=== PATIENT | female | born 1980 | race Caucasian/White ===

== ENCOUNTER 2021-04-09 20:38 | Emergency (ER) | payer BC, SELFPAY ==
--- NOTE | ~2021-04-09 | XR_ITS ---
EXAMINATION: XR CHEST CLINICAL INFORMATION: COVID+, chest wall pain COMPARISON: None TECHNIQUE: Frontal view of the chest was obtained. FINDINGS: The cardiomediastinal silhouette is within normal limits. Pulmonary vascularity is within normal limits. Mild streaky opacities in the left lung base most likely representing atelectasis. The lungs otherwise appear clear. The pleural spaces appear clear. There are no acute osseous findings. Surgical clips project at the neck base. XR/XR chest 1V IMPRESSION: Mild streaky left basilar opacities most likely representing atelectasis. Otherwise the lungs are relatively clear.
[2021-04-09 20:52] VITALS: BP 144/89; PULSE 74; RESP 16; TEMP 36.6; O2SAT 99; BMI 37.8
[2021-04-09 23:27] VITALS: BP 123/86; PULSE 63; RESP 16; TEMP 36.8; O2SAT 98
--- NOTE | 2021-04-10 00:24 | ED.URI ---
HPI - URI/Sore Throat General Chief Complaint: Upper Respiratory Symptoms Stated Complaint: SOB/+Covid Time Seen by Provider: 04/10/21 00:24 Source: patient Mode of arrival: ambulatory Limitations: no limitations History of Present Illness HPI Narrative: Patient already been vaccinated against COVID-19 has notices a booster dose here been sick for last 5 days with cough shortness of breath loss of Taste sensation already taking prednisone given by her PCP for last 4 days saturating 98% at room air Related Data Previous Rx's Medication Instructions Recorded codeine 10 mg-guaifenesin 100 mg/5 10 ml PO Q4-6H PRN #237 ml 04/10/21 mL oral liquid Allergies Allergy/AdvReac Type Severity Reaction Status Date / Time No Known Allergies Allergy Verified 04/09/21 20:52 Review of Systems Review of Systems: Yes all other systems are reviewed and are negative COUNT INCLUDES THE [facility] Social History Social History Advance Directives: No Advance Directives Information Provided: No Patient : No Physical Exam Vital Signs: Vital Signs: Last Vital Signs Temp 98.2 F 04/09/21 23:27 Pulse 63 04/09/21 23:27 Resp 16 04/09/21 23:27 BP 123/86 04/09/21 23:27 Pulse Ox 98 04/09/21 23:27 BMI result Body Mass Index 37.8 Appearance: Alert. Oriented X3. No acute distress. ENT: Pharynx normal. Oral Mucosa moist Neck: Normal inspection. Neck supple. CVS: Normal heart rate and rhythm. Pulses normal. Respiratory: No respiratory distress. Equal air entry bilateral, no wheezing/rales/rhonchi Abdomen: Soft and nontender. Skin: Skin warm and dry. Normal skin color. Extremities: No lower extremity edema. No calf tenderness Neuro: Oriented X 3. MDM - URI/Sore Throat MDM Narrative Medical decision making narrative: Patient with post COVID 19 vaccination with COVID symptoms COVID test positive chest x-ray negative discharge patient home on cough syrup patient already taking prednisone patient is saturating 98% room air Discharge Plan Discharge Clinical Impression: COVID-19 Patient Disposition: Home, Self-Care Instructions: COVID-19 (Coronavirus Disease 2019) (ED) Additional Instructions: Social distancing and isolation as advised Report to PCP/ER if increased shortness of breath Cough syrup as advised Prescriptions: New codeine-guaifenesin 10-100 mg/5 mL liquid 10 ml PO Q4-6H PRN (Reason: cough) Qty: 237 RF: 0 Interventions: ED Discharge Assessment Last Done: 04/10/21 01:01 Discharge Date/Time: 04/10/21 01:02
[2021-04-10] MEDS: guaiFEN/Codeine SF 200/20/10ML 10 ML LIQUID PO (01:00)
== END 2021-04-10 01:02 | disposition home or self-care (01) ==
PROVIDERS: Emergency Provider Internal Medicine; PCP Nurse Practitioner Family
DX: U07.1 COVID-19 (principal); R43.9 Unspecified disturbances of smell and taste
CPT/HCPCS: 71045; 99283; 99284

== ENCOUNTER → 2021-08-25 13:37 | Outpatient (BNVA) | payer BC, SELFPAY | PROVIDERS: PCP Nurse Practitioner Family; Visit Provider Nurse Practitioner Family | DX: Z13.89 Encounter for screening for other disorder (principal) ==

== ENCOUNTER 2021-10-25 06:34 | Outpatient (REF) | payer BC, SELFPAY ==
--- NOTE | ~2021-10-25 | FL_ITS ---
EXAMINATION: XR FLUOROSCOPY WITH IMAGES CLINICAL INFORMATION: Sacrococcygeal disorder. COMPARISON: None. TECHNIQUE: Fluoroscopy performed by Dr. Dayday Barragan. Fluoroscopy time: 0.2 minutes DAP: 1.43 Gycm2 Images: 3 FINDINGS: Imaging demonstrates needle and contrast overlying the region of the right sacroiliac joint. FL/FL guidance in treatment room IMPRESSION: Fluoroscopy for pain management procedure.
== END 2021-10-25 06:35 | disposition home or self-care (01) ==
LOC: HO.RADIR 06:34
PROVIDERS: Visit Provider Anesthesiology
DX: M53.3 Sacrococcygeal disorders, not elsewhere classified (principal); M47.816 Spondylosis without myelopathy or radiculopathy, lumbar region; M79.18 Myalgia, other site; M54.16 Radiculopathy, lumbar region
CPT/HCPCS: 27096

== ENCOUNTER 2021-12-02 06:17 | Day surgery (SDC) | payer BC, SELFPAY ==
--- NOTE | 2021-12-01 12:09 | HO.ANESPROP2 ---
Documented by User: Anuradha Sherwood NP 12/01/21 12:09 HPI - Anesthesia Eval Consult details Narrative: 41yo F for Caudal Epidural Steroid Injection with catheter PMFSH Active Problems Active Problems: All Active Problems (Updated 08/25/21 @ 22:22 by ELISABETH Moe) Lumbar radiculopathy (Acute) Low back pain (Acute) Anxiety (Acute) Myofascial pain (Acute) Sacroiliac joint dysfunction (Acute) Lumbar spondylosis (Acute) COVID-19 (Acute) Past Medical History Medical History Anxiety Endometriosis Heavy periods Low back pain PCOS (polycystic ovarian syndrome) Thyroid disease Surgical History Surgical History H/O thyroidectomy History of carpal tunnel release History of laparoscopy History of tonsillectomy and adenoidectomy S/P lumbar microdiscectomy Social History Social History Patient Tobacco Use Status: Never used Tobacco Use of substances other than those prescribed or required for medical reasons: No Are you DNR?: No Advance Directives: No Advance Directives Information Provided: Yes Meds Allergies Allergy/AdvReac Type Severity Reaction Status Date / Time No Known Allergies Allergy Verified 10/28/21 14:28 Home Medications Medication Instructions Recorded Confirmed Last Taken Type alprazolam 0.5 mg tablet 0.5 mg PO 08/25/21 Unknown History levothyroxine 125 mcg tablet 125 mcg PO DAILY 08/25/21 12/02/21 History (Synthroid) norgestimate 0.18 mg/0.215 mg/0.25 1 tab PO DAILY 08/25/21 Unknown History mg-ethinyl estradiol 25 mcg tablet (Brs-Po-Uvexsr) zolpidem 5 mg tablet 5 mg PO insomnia 08/25/21 Unknown History norgestimate 0.25 mg-ethinyl 1 tab PO DAILY 10/28/21 Unknown History estradiol 35 mcg tablet zolpidem 10 mg tablet 10 mg PO BEDTIME PRN 10/28/21 Unknown History Exam Exam Date and Time: December 01, 2021 1209 Assessment and Plan Assessment Anesthesia Assessment: Chart Reviewed Documented by User: Timoeto Patel MD 12/02/21 07:39 PMFSH Past Medical History Medical History Anxiety Endometriosis Heavy periods Low back pain PCOS (polycystic ovarian syndrome) Thyroid disease Patient : No Family History Family history of problems with anesthesia: No Surgical History Surgical History H/O thyroidectomy History of carpal tunnel release History of laparoscopy History of tonsillectomy and adenoidectomy S/P lumbar microdiscectomy History of Problems with Anesthesia: No Social History Social History Patient Tobacco Use Status: Never used Tobacco Use of substances other than those prescribed or required for medical reasons: No Are you DNR?: No Advance Directives: No Advance Directives Information Provided: Yes Meds Allergies Allergy/AdvReac Type Severity Reaction Status Date / Time No Known Allergies Allergy Verified 10/28/21 14:28 Home Medications Medication Instructions Recorded Confirmed Last Taken Type alprazolam 0.5 mg tablet 0.5 mg PO 08/25/21 Unknown History levothyroxine 125 mcg tablet 125 mcg PO DAILY 08/25/21 12/02/21 History (Synthroid) norgestimate 0.18 mg/0.215 mg/0.25 1 tab PO DAILY 08/25/21 Unknown History mg-ethinyl estradiol 25 mcg tablet (Xwg-Th-Ymkfty) zolpidem 5 mg tablet 5 mg PO insomnia 08/25/21 Unknown History norgestimate 0.25 mg-ethinyl 1 tab PO DAILY 10/28/21 Unknown History estradiol 35 mcg tablet zolpidem 10 mg tablet 10 mg PO BEDTIME PRN 10/28/21 Unknown History Exam Airway Mallampati Class: II TM Dist: >3cm Neck ROM: Full Loose/Missing/Broken Teeth: No (Rrr) Lungs: clear Assessment and Plan Final Anesthetic Review Family History of Problems with Anesthesia: No History of Problems with Anesthesia: No NPO: Yes ASA Class: II Final Preanesthetic Review: No Changes in Pt Med Stat, Meds/Allgs Chart Reviewed, Consent Obtained/Reviewed and Anes Risks/Benef Reviewed Patient Risk: Intermediate Anesthetic Plan Anesthetic Plan: MAC: Disposition: Standard PACU
--- NOTE | ~2021-12-02 | FL_ITS ---
EXAMINATION: XR FLUOROSCOPY WITH IMAGES CLINICAL INFORMATION: Caudal epidural steroid injection COMPARISON: None. TECHNIQUE: Fluoroscopy performed by Dr. Dayday Barragan. Fluoroscopy time: 0.2 minutes. Cumulative Dose: 13.1 mGy. DAP: 3.57 Gy-cm2. Images: 2. FINDINGS: Spinal needle seen at the lower sacral hiatus. There is some scattered contrast in the epidural space. No visible vascular communication. FL/FL guidance in OR IMPRESSION: Fluoroscopy for pain management procedure.
[2021-12-02 06:36] LABS: UPreg QC Valid YES; Urine Pregnancy NEGATIVE (NEGATIVE)
[2021-12-02 06:38] VITALS: BP 140/87; PULSE 73; RESP 18; TEMP 36.3; O2SAT 98; BMI 41.5
[2021-12-02] MEDS: Lactated Ringers 1,000 ML 100 ML IVCONT (06:49)
--- NOTE | 2021-12-02 06:59 | MHC.SHP ---
Pre-Procedural Eval Section A Date of Service: 12/02/21 Changes since office visit: Yes Patient answered all questions The History & Physical has been completed within 30 days and I have reviewed it.: No Section B Chief Complaint: Radiculopathy, lumbar region Details of Present Illness: As above plus postlaminectomy syndrome Relevant Family History (Specify if Yes): No Relevant Social History: None Present Medications: see Short Stay Collaborative assessment Medical History: No relevant PMH History of Previous Operations: Relevant previous surgery/procedure and date(s) Allergies: Allergies Allergy/AdvReac Type Severity Reaction Status Date / Time No Known Allergies Allergy Verified 10/28/21 14:28 Review of Systems Sugical H&P ROS: Negative: Cardiovascular, Respiratory, Neurological, Psychiatric, Hem-Onc, Allergic/Immunologic, Gastrointestinal, Genitourinary, Musculoskeletal, Integumentary, Endocrine and Eyes/Ears/Nose/Throat and Yes, Specify: Constitution ( morbid obesity) Exam Surgical H&P Exam: Normal: HEENT, Normal: Heart, Normal: Lungs, Normal: Extremities, Normal: Skin and Normal: Neurological and Significant Findings: Abdomen ( enlarged due to fat) Plan Diagnosis/Plan: Unchanged I have reviewed the history and physical and performed a pertinent physical examination on my patient. No changes have occurred unless specified.
--- NOTE | 2021-12-02 07:01 | W.PM.OPN ---
Operative Note Operative Note Date of Service: 12/02/21 Narrative: caudal epidural steroid injection with catheter After explaining informed consent and answering all the questions of the patient, she was taken to the operating room where she was positioned prone on the operating table. [employer] monitors were applied and patient was sedated. Time-out was performed delineating correct site and side of the procedure nature of the procedure, name and date of of the patient. The patient's lower back, medial buttocks and intergluteal crease were prepped with ChloraPrep and draped with sterile utility towels. C-arm was brought over the operating field and picture of patient's pelvis was demonstrated on the screen. The point of interest was determined as the projection of sacral hiatus on the skin. Injection of the local anesthetic lidocaine 1% was performed into the area raising skin wheal approximately 3 cm below the sacral hiatus projection to the skin. After that 18 gauge Touhy needle was inserted through the skin wheal and advanced to the caudal canal on intermittent anterior posterior and lateral views. When needle entered caudal canal injection of the contrast was performed demonstrating epidural spread of the contrast. stylet was removed from the needle and epidural catheter was inserted into the needle and advanced until resistance was made. injection of the contrast was performed demonstrating spread of the contrast in the projection of the L5-S1 anterior epidural space. After that needle was withdrawn injection of normal saline 0.9% 24 cc was performed into the needle. After that mixture of lidocaine 1% preservative free 5 cc was injected into the needle mixed with Kenalog 80 mg. Upon completion of the injection needle was withdrawn with catheter un mass the tip of the catheter was intact. The bacitracin ointment dressing was applied to the area of injection. Patient tolerated procedure well, she was taken outside of the operating room to recovery room where she recovered uneventfully.
--- NOTE | 2021-12-02 08:24 | PM.OP ---
Brief Operative Note Date of Service: 12/02/21 Pre-op diagnosis: radiculopathy lumbar, disc degeneration, postlaminectomy syndrome Post-op diagnosis: same Procedure: caudal TA with catheter Implants: none per Surgeon: Dayday Barragan MD Anesthesia: MAC Was an [employer] used for this Procedure?: No Estimated blood loss (mL): 2 Pathology: none sent Condition: stable Disposition: PACU
[2021-12-02 08:25] VITALS: BP 138/79; PULSE 71; RESP 16; TEMP 36.4; O2SAT 98
[2021-12-02 08:40] VITALS: BP 140/91; PULSE 63; RESP 16; TEMP 36.4; O2SAT 98
== END 2021-12-02 09:16 | disposition home or self-care (01) ==
PROVIDERS: Nurse Practitioner; Visit Provider Anesthesiology
PROC: 3E0R33Z Introduction of Anti-inflammatory into Spinal Canal, Percutaneous Approach (ICD-10-PCS; CPT 62323; principal; 2021-12-02 08:00)
DX: M54.16 Radiculopathy, lumbar region (principal); M53.3 Sacrococcygeal disorders, not elsewhere classified; M79.18 Myalgia, other site; M47.816 Spondylosis without myelopathy or radiculopathy, lumbar region; Z79.899 Other long term (current) drug therapy; Z98.890 Other specified postprocedural states
CPT/HCPCS: 62323; 81025; J2250; J3010; J3300